=== PATIENT | male | born 1970 | race Caucasian/White ===

== ENCOUNTER 2023-07-30 15:19 | Emergency (ER) | payer OTHER | END 2023-07-30 16:43 | LOC: EEVIPCON 15:19 → NAV ERS 15:19 | DX: S80.11XA Contusion of right lower leg, initial encounter (principal); I10 Essential (primary) hypertension; W01.198A Fall on same level from slipping, tripping and stumbling with subsequent striking against other object, initial encounter; Y92.149 Unspecified place in prison as the place of occurrence of the external cause; Z79.899 Other long term (current) drug therapy ==